=== PATIENT | female | born 1960 | race Caucasian/White ===

== ENCOUNTER → 2017-04-28 | Outpatient (CLI) | payer OTHER, MEDICARE ==
[~2017-04-28] MED LIST: ACTOS15 MG PO; AMITRIPTYLINE H50 MG PO; AMLODIPINE BESY10 MG PO; APIDRA (NF100 UNITS/ SUBQ; APIDRA SUBQ; ASPIRIN ENTERI325 M1 PO; ASPIRIN PO; ASPIRIN81 M2 PO; BACLOFEN20 M1 PO; BACLOFEN20 MG PO; BACTRIM DS TABL1 TA2 PO; BENAZEPRIL HCL40 MG PO; BENAZEPRIL PO; BISMUTH SUBSALICYLAT PO; CELEXA20 MG PO; CLARITHROMYCIN500 MG PO; CYMBALTA30 MG PO; HYDROCODON-ACE1 EAC4 PO; INSULIN; JANUMET 50-1,1 UDTAB PO; JANUMET PO; LAMOTRIGINE200 MG PO; LANTUS100 UNITS/ SUBQ; LEVEMIR SQ; LEVEMIR100 U/ML SQ; LINZESS290 MCG PO; LOTREL PO; LYRICA100 MG PO; METRONIDAZOLE PO; MIRALAX17 GM PO; OXYCODON HCL-1 UDTA1 PO; OXYCODON HCL-1 UDTAB PO; PHENERGAN25 M1 PO; PIOGLITAZONE15 MG PO; PRAVASTATIN SOD40 MG PO; PRILOSEC20 MG PO; SAVELLA50 MG PO; TASPRIN325 MG PO; TETRACYCLINE PO; [UNRECOGNIZED DRUG - OTHER] SUBQ
[2017-04-28 10:46] LABS: ALBUMIN SERUM 3.2 g/dL (3.5-5.0); BILIRUBIN,TOTAL 0.6 mg/dL (0.2-2.0); BUN/CREATININE RATIO 12.72; CALCIUM SERUM 8.7 mg/dL (8.4-10.2); CREATININE SERUM 1.1 mg/dL (0.6-1.4); GLOM FILT RATE Estimated 54.9 mL/min (>60); POTASSIUM 4.6 mmol/L (3.5-5.1); PROTEIN TOTAL SERUM 6.4 g/dL (6.0-8.3)
== END | disposition home or self-care (01) ==
LOC: CLAB 09:31
PROVIDERS: Internal Medicine Endocrinology, Diabetes & Metabolism
DX: E11.40 Type 2 diabetes mellitus with diabetic neuropathy, unspecified (principal); E11.65 Type 2 diabetes mellitus with hyperglycemia; E78.4 Other hyperlipidemia
CPT/HCPCS: 36415; 80053; 83036